=== PATIENT | male | born 1975 | race Caucasian/White ===

== ENCOUNTER → 2017-03-26 | Outpatient (CLI) | payer OTHER ==
--- NOTE | 2017-03-27 19:53 | CPEEG ---
[f rep st] ELECTROENCEPHALOGRAM FOUR-HOUR VIDEO EEG. DATE OF STUDY: 03/27/2017 DATE OF INTERPRETATION: 03/27/2017 INTERPRETATION: This 4-hour video EEG recording contains a mild degree of diffuse nonspecific slowing. These findings would be consistent with a mild diffuse disturbance of cerebral function. There was no potentially epileptogenic abnormalities present in the awake or sleep recordings. The patient did not have any clinical events during the video EEG monitoring session. REPORT: This 4-hour video EEG contains 9 Hz alpha activity to the posterior head regions. There was a mild degree of diffuse intermittent slowing composed of [id number] amplitude theta frequency activity. Between the bursts of intermittent slowing, his background activity was normal and symmetric during maximal alertness. There was no abnormal activation at rest, during photic stimulation, or hyperventilation. The patient became drowsy and fell into sustained sleep during the study. There was no abnormal activation during drowsiness, sleep, or during times of arousal. The patient did not have any clinical events during the video EEG monitoring session. /[id number]/MODL MTDD
== END ==
LOC: FCPNEURO 08:02
PROVIDERS: ATTEND Psychiatry & Neurology Neurology
DX: G40.909 Epilepsy, unspecified, not intractable, without status epilepticus (principal); F09 Unspecified mental disorder due to known physiological condition; F07.89 Other personality and behavioral disorders due to known physiological condition